=== PATIENT | male | born 1955 | race Caucasian/White ===

== ENCOUNTER 2016-11-08 13:55 | Emergency (ER) | payer MEDICARE ==
[~2016-11-08] VITALS: Ht 177.8 cm; Wt 100.5 kg
[~2016-11-08 13:55] MED LIST: AMIO100T4 PO; ATEN50TA41 PO; DIAZ10TA PO; DIPH25CA61 PO; OXYC-229 PO; PSEU120T9 PO; WARF1TAB7 PO
[2016-11-08 15:36] LABS: BLOOD UREA NITROGEN 11 mg/dL (7-18)
[2016-11-08 16:24] VITALS: BP 112/50
== END 2016-11-08 16:26 | disposition home or self-care (01) ==
LOC: ED 16:07
DX: J18.9 Pneumonia, unspecified organism (principal); I48.91 Unspecified atrial fibrillation; I11.9 Hypertensive heart disease without heart failure; Z87.891 Personal history of nicotine dependence
CPT/HCPCS: 36415; 71020; 80048; 85025

== ENCOUNTER → 2017-01-09 | Outpatient (CLI) | payer MEDICARE | END | disposition home or self-care (01) | LOC: CFH 14:36 | PROVIDERS: ATTEND Nurse Practitioner | DX: M43.17 Spondylolisthesis, lumbosacral region (principal); M48.07 Spinal stenosis, lumbosacral region; M41.86 Other forms of scoliosis, lumbar region; I70.0 Atherosclerosis of aorta | CPT/HCPCS: 72110 ==

== ENCOUNTER → 2017-02-12 | Outpatient (CLI) | payer MEDICARE | END | disposition home or self-care (01) | LOC: CFH 10:05 | PROVIDERS: ATTEND Pain Medicine Pain Medicine | DX: G31.9 Degenerative disease of nervous system, unspecified (principal) | CPT/HCPCS: 70551 ==

== ENCOUNTER 2019-03-03 15:41 | Emergency (ER) | payer MEDICARE ==
[~2019-03-03] VITALS: Ht 177.8 cm; Wt 95.5 kg
[~2019-03-03 15:41] MED LIST changes: -OXYC-229 PO; +OXYC-307 PO; -WARF1TAB7 PO; +WARF1TAB74 PO
--- NOTE | 2019-03-03 17:05 | NUR ---
TO ROOM FROM LOBBY. NAD.
--- NOTE | 2019-03-03 17:12 | NUR ---
PATIENT ARRIVES TO THE ER WITH PAIN IN BACK. HE HAS HAD FOUR LOWER BACK SURGERIES, TWO CERVICAL SPINE SURGERIES AND HE CURRENTLY HAS A FAT DEPOSIT THAT IS COMPRESSED LUMBAR SPINE. HE ARRIVES TODAY WITH BACK PAIN. HE HAS A HX OF SPINAL STENOSIS. HE IS UNDER PAIN MANAGEMENT CARE WITH DR. FALLON. HE THEN SWITCHED TO [facility] AND THEY ARE CHANGING HIS PAIN PLAN - SO HE IS OUT OF PAIN MEDICATIONS AND IN PAIN. HE WAS ON OXY 10/325 MG SIX DAILY.
[2019-03-03] MEDS ORDERED: METH500T7 PO (17:20)
[2019-03-03] MEDS ORDERED: OXYcodone/APAP 10/325MG TABLET PO ONE (18:00)
[2019-03-03 18:04] VITALS: BP 132/78
--- NOTE | 2019-03-03 18:05 | NUR ---
DISCHARGE TEACHING REVIEWED. SHOWS UNDERSTANDING.
[2019-03-03] MEDS ORDERED: OXYcodone/APAP 10/325MG TABLET ONE (18:07)
== END 2019-03-03 18:12 | disposition home or self-care (01) ==
LOC: ED 18:00
DX: M54.6 Pain in thoracic spine (principal); M54.5 Low back pain; F11.20 Opioid dependence, uncomplicated; I11.9 Hypertensive heart disease without heart failure; I48.91 Unspecified atrial fibrillation
CPT/HCPCS: 99282

== ENCOUNTER → 2020-08-27 | Outpatient (CLI) | payer MEDICARE ==
[~2020-08-27] MED LIST changes: +METH500T7 PO
== END | disposition home or self-care (01) ==
LOC: CFH 11:00
PROVIDERS: ATTEND Physician Assistant Surgical
DX: M25.511 Pain in right shoulder (principal); M25.532 Pain in left wrist

== ENCOUNTER → 2020-10-10 | Outpatient (CLI) | payer MEDICARE ==
[~2020-10-10] MED LIST changes: +METH-639 PO; -METH500T7 PO; -OXYC-307 PO; +OXYC-380 PO
== END | disposition home or self-care (01) ==
LOC: CFH 15:04
PROVIDERS: ATTEND Family Medicine
DX: R60.0 Localized edema (principal)
CPT/HCPCS: 93970

== ENCOUNTER 2021-05-07 13:43 | Outpatient (CLI) | payer MEDICARE ==
[~2021-05-07 13:43] MED LIST changes: +ALPR1TAB2 PO; -OXYC-380 PO; +OXYC-501 PO
[2021-05-07] MEDS ORDERED: ALPRazolam 1MG TAB ONE (14:42)
== END 2021-05-07 23:59 | disposition home or self-care (01) ==
LOC: RAD 13:43 → EDSTATUS 14:00 → RAD 23:59
PROVIDERS: ATTEND Nurse Practitioner Family
DX: S46.211A Strain of muscle, fascia and tendon of other parts of biceps, right arm, initial encounter (principal); M51.37 Other intervertebral disc degeneration, lumbosacral region; M48.07 Spinal stenosis, lumbosacral region; M65.9 Synovitis and tenosynovitis, unspecified; M25.832 Other specified joint disorders, left wrist; M25.711 Osteophyte, right shoulder; M25.532 Pain in left wrist; M54.5 Low back pain; M25.511 Pain in right shoulder; X58.XXXA Exposure to other specified factors, initial encounter; Y93.89 Activity, other specified; Y92.89 Other specified places as the place of occurrence of the external cause; Y99.8 Other external cause status
CPT/HCPCS: 72148